=== PATIENT | female | born 1960 | race African-American/Black ===

== ENCOUNTER 2017-03-03 07:41 | Day surgery (SDC) | payer OTHER ==
[2017-03-02 13:28] VITALS: BMI 38.2
[2017-03-03 08:55] VITALS: TEMP 98.3
[2017-03-03] MEDS ORDERED: IBUPROFEN 800 MG/8 ML IJ IVPB PRN (09:22)
--- NOTE | 2017-03-03 09:22 | HP ---
History & Physical Update - History History: No Change - Physical Physical: No Change - Assessment Assessment: No Change - Plan Plan: No Change
[2017-03-03] MEDS ORDERED: MIDAZOLAM HCL 2 MG/2 ML SINGLE DOSE VIAL ONE ×2 (09:25)
[2017-03-03] MEDS ORDERED: PROPOFOL 20 ML ONE (09:25)
[2017-03-03] MEDS ORDERED: DEXTROSE 5%-0.45% SALINE 1,000 ML IV SCH (09:30)
[2017-03-03] MEDS ORDERED: LIDOCAINE HCL 1%, 10 MG/ML (20ML VIAL) ONE (09:37)
[2017-03-03] MEDS ORDERED: ceFAZolin SODIUM 1 GM VIAL ONE (10:07)
[2017-03-03] MEDS ORDERED: ceFAZolin SODIUM 1 GM VIAL IVPB ONE (10:09)
[2017-03-03] MEDS ORDERED: LIDOCAINE HCL 1%, 10 MG/ML (20ML VIAL) IJ ONE (10:14)
[2017-03-03] MEDS ORDERED: ACETAMINOPHEN 1000 MG/100 ML VIAL (NON FORMULARY) IVPB ONE (10:15)
[2017-03-03] MEDS ORDERED: BACITRACIN 50,000 UNITS VIAL TP ONE (10:30)
[2017-03-03 14:03] VITALS: BP 136/70; PULSE 54
--- NOTE | 2017-03-04 09:19 | PATH ---
Surgical Pathology Report Patient Name: JOSH CANSECO Med. Rec. #: [id number] /Age/Gender: 1960 (Age: 56) / F Account: [id number] Location: [facility] Taken: 03/03/2017 Received: 03/03/2017 Reported: 03/04/2017 Physicians: Mitch Mckenzie M.D. 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 Electronically Signed Jaya Joiner M.D. Gross Description Received fresh labeled "old interstim battery," is a 5.0 x 4.3 x 0.8 cm simpson metallic device, consistent with a battery. The specimen has the following inscription: "[employer]onic InterStim II SN: [id number]." No soft tissue is present. No sections are submitted, gross only. /03/03/2017 [facility]03/03/2017
--- NOTE | 2017-04-06 10:16 | OP ---
DATE OF OPERATION: 03/03/2017 PREOPERATIVE DIAGNOSIS: Urge urinary incontinence. POSTOPERATIVE DIAGNOSIS: Urge urinary incontinence. PROCEDURE PERFORMED: InterStim battery replacement. SURGEON: Mitch Mckenzie MD ANESTHESIA: IV sedation with local. SPECIMEN: Old battery. INDICATIONS: The patient is a 56-year-old female who has found lots of success with the InterStim implant. However, the battery is now at end of life and she is having recurrence of her symptoms. She comes to the OR for change of the battery. DESCRIPTION OF PROCEDURE: The patient was brought to the OR and placed on the table in the prone position. All pressure points were protected. She was given IV sedation, and the back was prepped and draped sterilely. A time-out was performed. An incision was made over the old battery site, and the battery was dissected out. It was then removed from its quadripolar lead. The existing lead was tested and noted to have a good response at low amplitude. It was then connected to a new battery, which was then replaced into the pocket. Impedances were noted to be normal. The device was also reprogrammed. The incision was then closed in 2 layers and the wound was dressed. The patient was woken up. MITCH MCKENZIE M.D. [id number]
== END 2017-03-03 12:10 | disposition home or self-care (01) ==
LOC: JASU-SURG 07:41
PROVIDERS: ATTEND Urology
PROC: 0JH70BZ Insertion of Single Array Stimulator Generator into Back Subcutaneous Tissue and Fascia, Open Approach (ICD-10-PCS; 2017-03-03)
PROC: 0JPT0MZ Removal of Stimulator Generator from Trunk Subcutaneous Tissue and Fascia, Open Approach (ICD-10-PCS; principal; 2017-03-03 09:00)
DX: N39.41 Urge incontinence (principal)
CPT/HCPCS: 64590; C1767; 76000-TC; 88300-TC

== ENCOUNTER 2024-02-02 05:15 | Day surgery (SDC) | payer OTHER ==
[2024-01-27 17:01] VITALS: BMI 31.1
[2024-02-02] MEDS ORDERED: LIDOCAINE HCL 1%, 10 MG/ML (20ML VIAL) ONE (09:48)
[2024-02-02] MEDS ORDERED: VANCOMYCIN 1,000 MG VIAL (RESTRICTED TO ID ONLY) ONE (09:48)
[2024-02-02] MEDS ORDERED: ACETAMINOPHEN 1000 MG/100 ML BAG IVPB ONE (10:44)
[2024-02-02] MEDS ORDERED: DEXTROSE 5%-0.45% SALINE 1,000 ML IV SCH (10:45)
[2024-02-02] MEDS ORDERED: FENTANYL CITRATE/PF 50 MCG/ML VIAL ONE ×3 (11:21→12:49)
[2024-02-02] MEDS ORDERED: MIDAZOLAM HCL 2 MG/2 ML SINGLE DOSE VIAL ONE ×2 (11:21→11:29)
[2024-02-02] MEDS: ceFAZolin SODIUM 1 GM VIAL IVPB ONE (11:30)
[2024-02-02] MEDS ORDERED: PROPOFOL 20 ML ONE (11:37)
[2024-02-02] MEDS: LIDOCAINE HCL 1%, 10 MG/ML (20ML VIAL) INF ONE ×2 (11:40)
[2024-02-02] MEDS ORDERED: oxyCODONE HCL 5 MG TABLET PO PRN (12:32)
[2024-02-02] MEDS ORDERED: PROMETHAZINE HCL 25 MG/1 ML VIAL IVPB PRN (12:32)
[2024-02-02] MEDS ORDERED: LACTATED RINGERS SOLUTION 1,000 ML IV SCH (12:45)
[2024-02-02] MEDS ORDERED: ACETAMINOPHEN INJECTION 100 ML IVPB ONE (12:56)
[2024-02-02] MEDS: ACETAMINOPHEN 1000 MG/100 ML BAG IVPB ONE (13:00)
[2024-02-02 14:24] VITALS: RESP 20; TEMP 98.2
[2024-02-02 14:47] VITALS: BP 118/54; PULSE 52
== END 2024-02-02 14:44 | disposition home or self-care (01) ==
LOC: JASU-SURG 05:15
PROVIDERS: ATTEND Urology
PROC: 0JH70BZ Insertion of Single Array Stimulator Generator into Back Subcutaneous Tissue and Fascia, Open Approach (ICD-10-PCS; 2024-02-02)
PROC: 01PY0MZ Removal of Neurostimulator Lead from Peripheral Nerve, Open Approach (ICD-10-PCS; 2024-02-02)
PROC: 01HY0MZ Insertion of Neurostimulator Lead into Peripheral Nerve, Open Approach (ICD-10-PCS; 2024-02-02)
PROC: 0JPT0MZ Removal of Stimulator Generator from Trunk Subcutaneous Tissue and Fascia, Open Approach (ICD-10-PCS; principal; 2024-02-02 10:30)
DX: N39.41 Urge incontinence (principal); R35.0 Frequency of micturition
CPT/HCPCS: 64581; 64590; C1778; L8679; 76000-TC-FY; 82962; 88300-TC; 94760; J0131